=== PATIENT | male | born 1990 ===

== ENCOUNTER 2018-05-30 10:20 | Emergency (ER) | payer OTHER ==
[2018-05-30 10:56] VITALS: RESP 16; TEMP 98.5
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
[2018-05-30 13:14] VITALS: BP 122/66; PULSE 55; O2SAT 97
--- NOTE | 2018-05-30 13:18 | RAD ---
Date of service: 05/30/2018 PROCEDURE: Radiographs of the Lumbar Spine. HISTORY: back pain COMPARISON: No prior. FINDINGS: BONES: Normal alignment. No listhesis. No fracture. DISC SPACES: Unremarkable. OTHER FINDINGS: None. IMPRESSION: Unremarkable radiographs of the lumbar spine.
== END 2018-05-30 13:47 | disposition home or self-care (01) ==
LOC: ED 10:20
DX: M54.5 Low back pain (principal)
CPT/HCPCS: 72110; 96372; 99283; J1885